=== PATIENT | female | born 1960 | race Caucasian/White ===

== ENCOUNTER 2017-12-16 22:19 | Inpatient (IN) | payer MEDICAID, OTHER ==
[~2017-12-16] VITALS: Ht 182.9 cm; Wt 155.6 kg
[2017-12-16 22:26] VITALS: BP_SYST 148
[2017-12-16] MEDS ORDERED: CARB200T PO (22:42)
[2017-12-16] MEDS ORDERED: ASA81 PO (22:42)
[2017-12-16] MEDS ORDERED: VITD2000 PO (22:42)
[2017-12-16] MEDS ORDERED: LISI40TA4 PO (22:42)
[2017-12-16] MEDS ORDERED: GLIP10TA11 PO (22:42)
[2017-12-16] MEDS ORDERED: CILO100T PO (22:42)
[2017-12-16] MEDS ORDERED: GLU500 PO (22:42)
[2017-12-16] MEDS ORDERED: LOVA20TA2 PO (22:42)
[2017-12-16] MEDS ORDERED: DEXTROSE 50% JECT 50 ML DISP.SYRIN IVP ONE (23:15)
[2017-12-16] MEDS ORDERED: LORazepam 2 MG/ML VIAL (FOR ER USE) IVP ONE (23:15)
[2017-12-16 23:22] LABS: BASOPHILS # (AUTO) 0.1 K/uL (0.0-0.2); EOSINOPHILS # (AUTO) 0.3 K/uL (0.0-0.4); EOSINOPHILS % (AUTO) 3.2 % (0.0-4.0); HEMATOCRIT 34.6 % (36-48); HEMOGLOBIN 11.8 g/dL (12.0-16.0); LYMPHOCYTES # (AUTO) 1.8 K/uL (1.0-5.5); MEAN CORPUSCULAR HEMOGLOBIN 33 pg (27-31); MEAN CORPUSCULAR HGB CONC 34 % (32-36); MEAN CORPUSCULAR VOLUME 96 fL (79.0-98.0); MONOCYTES % (AUTO) 12.7 % (1.7-9.3); NEUTROPHILS # (AUTO) 4.7 K/uL (1.8-7.7); NEUTROPHILS % (AUTO) 60.1 % (40.0-70.0); PLATELET COUNT (AUTO) 154 K/uL (130-430); RED BLOOD CELL COUNT(AUTO) 3.61 MIL/uL (4.2-6.2); RED CELL DISTRIBUTION WIDTH 13.6 % (9.0-15.0); WHITE BLOOD COUNT (AUTO) 7.9 K/uL (4.8-10.8)
[2017-12-16 23:34] LABS: CALCIUM 8.2 mg/dL (8.4-11.0); CREATININE 1.4 mg/dL (0.55-1.30); POTASSIUM 5.4 mmol/L (3.5-5.1)
[2017-12-16 23:38] LABS: ALBUMIN 1.8 g/dL (3.4-4.8); TOTAL BILIRUBIN 1.2 mg/dL (0.0-1.0)
[2017-12-16] MEDS ORDERED: SODIUM POLYSTYRENE SULFONATE 15 GM/60 ML UDBTL PO ONE (23:45)
[2017-12-16] MEDS ORDERED: INSULIN REGULAR, HUMAN 10 UNITS/0.1 ML INJ IVP ONE (23:45)
[2017-12-16] MEDS ORDERED: ALBUTEROL SULFATE 0.083% 2.5 MG/3 ML VIAL.NEB INH ONE (23:45)
[2017-12-16] MEDS ORDERED: NACL 0.9% 1,000 ML IV ONE (23:45)
[2017-12-17 00:18] LABS: FREE T4 (FREE THYROXINE) 1.3 ng/dl (0.8-1.5); THYROID STIMULATING HORMONE 2.04 uIu/mL (0.36-3.74)
[2017-12-17 01:42] VITALS: BP_SYST 122
[2017-12-17 02:10] VITALS: BP_SYST 116
[2017-12-17 04:47] LABS: BILIRUBIN,URINE 1+ (NEGATIVE); BLOOD, URINE 1+ (NEGATIVE); CLARITY/URINE CLEAR (CLEAR); COLOR,URINE YELLOW (YELLOW); GLUCOSE,URINE TRACE (NEGATIVE); KETONES,URINE NEGATIVE (NEGATIVE); LEUKOCYTE ESTERASE ,URINE NEGATIVE (NEGATIVE); NITRITE, URINE NEGATIVE (NEGATIVE); PROTEIN URINE TRACE (NEGATIVE)
[2017-12-17 04:49] LABS: BACTERIA,URINE FEW /HPF (None Seen); MUCUS,URINE None Seen /LPF (None Seen); RBC,URINE 0-3 /HPF (0-3); WBC,URINE 0-3 /HPF (0-3)
[2017-12-17] MEDS: INSULIN REGULAR, HUMAN 100 UNITS/ML, 10 ML VIAL (novoLIN R) SUBCUT PRN ×2 (06:08→11:18)
[2017-12-17 08:06] VITALS: BP_SYST 108
[2017-12-17 11:28] VITALS: BP_SYST 122
[2017-12-17 15:24] VITALS: BP_SYST 121
[2017-12-17 17:22] LABS: BASOPHILS # (AUTO) 0.1 K/uL (0.0-0.2); EOSINOPHILS # (AUTO) 0.3 K/uL (0.0-0.4)
[2017-12-17 17:24] LABS: BASOPHILS % (AUTO) 0.8 % (0.0-2.0); EOSINOPHILS % (AUTO) 2.6 % (0.0-4.0); HEMATOCRIT 32.2 % (36-48); LYMPHOCYTES # (AUTO) 2.4 K/uL (1.0-5.5); LYMPHOCYTES % (AUTO) 23.3 % (20.5-51.5); MEAN CORPUSCULAR HEMOGLOBIN 33 pg (27-31); MEAN CORPUSCULAR HGB CONC 34 % (32-36); MEAN CORPUSCULAR VOLUME 96 fL (79.0-98.0); MONOCYTES # (AUTO) 1.3 K/uL (0.0-1.0); MONOCYTES % (AUTO) 12.8 % (1.7-9.3); NEUTROPHILS # (AUTO) 6.3 K/uL (1.8-7.7); NEUTROPHILS % (AUTO) 60.5 % (40.0-70.0); PLATELET COUNT (AUTO) 151 K/uL (130-430); RED BLOOD CELL COUNT(AUTO) 3.36 MIL/uL (4.2-6.2); RED CELL DISTRIBUTION WIDTH 13.7 % (9.0-15.0); WHITE BLOOD COUNT (AUTO) 10.4 K/uL (4.8-10.8)
[2017-12-17 17:31] LABS: CALCIUM 8.1 mg/dL (8.4-11.0); CREATININE 1.36 mg/dL (0.55-1.30); POTASSIUM 4.7 mmol/L (3.5-5.1)
[2017-12-17 17:32] LABS: INR 1.3 (0.8-1.2); PROTHROMBIN TIME 13.3 SECS (9.5-12.5)
[2017-12-17] MEDS ORDERED: DEXTROSE 50% JECT 50 ML DISP.SYRIN IVP PRN (18:15)
[2017-12-17] MEDS ORDERED: INSULIN REGULAR, HUMAN 100 UNITS/ML, 10 ML VIAL (novoLIN R) SUBCUT PRN (18:15)
[2017-12-17] MEDS: FUROSEMIDE 100 MG in D5W 90 ML IV SCH (18:18)
[2017-12-17 20:00] VITALS: BP_SYST 147
[2017-12-17] MEDS: CILOSTAZOL 50 MG TABLET (PLETAL) PO SCH (21:35)
[2017-12-17] MEDS: SPIRONOLACTONE 50 MG TABLET (ALDACTONE) PO SCH (21:36)
[2017-12-18 01:23] VITALS: BP_SYST 118
[2017-12-18 06:48] LABS: BASOPHILS # (AUTO) 0.1 K/uL (0.0-0.2); BASOPHILS % (AUTO) 1.4 % (0.0-2.0); EOSINOPHILS # (AUTO) 0.3 K/uL (0.0-0.4); EOSINOPHILS % (AUTO) 2.8 % (0.0-4.0); HEMATOCRIT 29.9 % (36-48); HEMOGLOBIN 10.4 g/dL (12.0-16.0); LYMPHOCYTES # (AUTO) 2.5 K/uL (1.0-5.5); LYMPHOCYTES % (AUTO) 25.7 % (20.5-51.5); MEAN CORPUSCULAR HEMOGLOBIN 33 pg (27-31); MEAN CORPUSCULAR HGB CONC 35 % (32-36); MEAN CORPUSCULAR VOLUME 95 fL (79.0-98.0); MONOCYTES # (AUTO) 1.1 K/uL (0.0-1.0); MONOCYTES % (AUTO) 11.5 % (1.7-9.3); NEUTROPHILS # (AUTO) 5.6 K/uL (1.8-7.7); NEUTROPHILS % (AUTO) 58.6 % (40.0-70.0); PLATELET COUNT (AUTO) 140 K/uL (130-430); RED BLOOD CELL COUNT(AUTO) 3.14 MIL/uL (4.2-6.2); RED CELL DISTRIBUTION WIDTH 13.3 % (9.0-15.0); WHITE BLOOD COUNT (AUTO) 9.6 K/uL (4.8-10.8)
[2017-12-18 07:18] LABS: ALBUMIN 1.4 g/dL (3.4-4.8); CALCIUM 8.1 mg/dL (8.4-11.0); CREATININE 1.26 mg/dL (0.55-1.30); POTASSIUM 4.7 mmol/L (3.5-5.1); TOTAL BILIRUBIN 1.8 mg/dL (0.0-1.0)
[2017-12-18 07:26] LABS: TOTAL IRON BIND. CAPACITY 131 ug/dL (250-450)
[2017-12-18 07:37] VITALS: BP_SYST 109
[2017-12-18] MEDS ORDERED: LISINOPRIL 20 MG TABLET PO SCH (09:00)
[2017-12-18 11:29] VITALS: BP_SYST 100
[2017-12-18] MEDS: CILOSTAZOL 50 MG TABLET (PLETAL) PO SCH ×2 (12:50→22:36)
[2017-12-18] MEDS: CHOLECALCIFEROL (VITAMIN D3) 2,000 UNIT TABLET PO SCH (12:50)
[2017-12-18] MEDS: SPIRONOLACTONE 50 MG TABLET (ALDACTONE) PO SCH ×2 (12:51→22:36)
[2017-12-18] MEDS: FUROSEMIDE 100 MG in D5W 90 ML IV SCH (12:51)
[2017-12-18] MEDS: ASPIRIN 81 MG TAB.CHEW PO SCH (12:51)
[2017-12-18 14:22] LABS: BODY FLUID SOURCE/ TYPE PARACENTESIS; SOURCE/TYPE ,BODY FLUID PARACENTESIS
[2017-12-18 14:23] LABS: APPEARANCE,SPUN,BODY FLUID CLEAR (CLEAR); BF APPEARANCE UNSPUN HAZY (CLEAR); BODY FLUID COLOR YELLOW (LT YELLOW); BODY FLUID TOTAL VOLUME 3 mL; NEUTROPHIL, BODY FLUID 11 %; RBC, BODY FLUID 49.4 /uL; WBC, BODY FLUID 50 /uL
[2017-12-18 14:24] LABS: EOSINOPHIL, BODY FLUID 2 %; LYMPHOCYTES, BODY FLUID 72 %; MONOCYTES,BODY FLUID 15 %
[2017-12-18 15:43] VITALS: BP_SYST 132
[2017-12-18 20:50] VITALS: BP_SYST 101
[2017-12-18 23:37] LABS: BODY FLUID GLUCOSE 88 mg/dL
[2017-12-18 23:38] LABS: BODY FLUID TOTAL PROTEIN 0.7 g/dL
[2017-12-19] VITALS: BP_SYST 122
[2017-12-19 07:05] LABS: BASOPHILS # (AUTO) 0.1 K/uL (0.0-0.2); BASOPHILS % (AUTO) 0.8 % (0.0-2.0); EOSINOPHILS # (AUTO) 0.3 K/uL (0.0-0.4); HEMATOCRIT 29.4 % (36-48); HEMOGLOBIN 10.2 g/dL (12.0-16.0); LYMPHOCYTES # (AUTO) 2.8 K/uL (1.0-5.5); LYMPHOCYTES % (AUTO) 26.9 % (20.5-51.5); MEAN CORPUSCULAR HEMOGLOBIN 33 pg (27-31); MEAN CORPUSCULAR HGB CONC 35 % (32-36); MEAN CORPUSCULAR VOLUME 95 fL (79.0-98.0); MONOCYTES # (AUTO) 1.2 K/uL (0.0-1.0); MONOCYTES % (AUTO) 11.7 % (1.7-9.3); NEUTROPHILS # (AUTO) 6.2 K/uL (1.8-7.7); NEUTROPHILS % (AUTO) 57.6 % (40.0-70.0); PLATELET COUNT (AUTO) 129 K/uL (130-430); RED CELL DISTRIBUTION WIDTH 13.2 % (9.0-15.0); WHITE BLOOD COUNT (AUTO) 10.6 K/uL (4.8-10.8)
[2017-12-19 07:06] LABS: HEPATITIS A AB, IgM Negative (Negative); HEPATITIS B CORE AB, IgM Negative (Negative); HEPATITIS B SURFACE AG Negative (Negative)
[2017-12-19 07:13] LABS: INR 1.4 (0.8-1.2); PROTHROMBIN TIME 14.5 SECS (9.5-12.5)
[2017-12-19 07:15] LABS: CREATININE 1.16 mg/dL (0.55-1.30); POTASSIUM 4.5 mmol/L (3.5-5.1)
[2017-12-19 07:23] LABS: ALBUMIN 1.5 g/dL (3.4-4.8); TOTAL BILIRUBIN 1.6 mg/dL (0.0-1.0)
[2017-12-19 08:14] LABS: AFP, TUMOR MARKER 2.5 ng/mL (0.0-8.3)
[2017-12-19 08:31] VITALS: BP_SYST 106
[2017-12-19] MEDS: CHOLECALCIFEROL (VITAMIN D3) 2,000 UNIT TABLET PO SCH (09:18)
[2017-12-19] MEDS ORDERED: LIDOCAINE 1%, 20 ML MDV 20 ML ONE (09:43)
[2017-12-19] MEDS: FUROSEMIDE 100 MG in D5W 90 ML IV SCH (12:07)
[2017-12-19] MEDS: ASPIRIN 81 MG TAB.CHEW PO SCH (12:07)
[2017-12-19] MEDS: SPIRONOLACTONE 50 MG TABLET (ALDACTONE) PO SCH ×2 (12:08→20:47)
[2017-12-19] MEDS: CILOSTAZOL 50 MG TABLET (PLETAL) PO SCH ×2 (12:08→20:48)
[2017-12-19 12:16] VITALS: BP_SYST 107
[2017-12-19 14:57] LABS: BF APPEARANCE UNSPUN SLIGHTLY HAZY (CLEAR); BODY FLUID COLOR LT YELLOW (LT YELLOW); BODY FLUID SOURCE/ TYPE PARACENTESIS; BODY FLUID TOTAL VOLUME 5800 mL; SOURCE/TYPE ,BODY FLUID ASCITES
[2017-12-19 16:30] LABS: LYMPHOCYTES, BODY FLUID 18 %; NEUTROPHIL, BODY FLUID 13 %
[2017-12-19 16:37] VITALS: BP_SYST 125
[2017-12-19 17:08] LABS: EOSINOPHIL, BODY FLUID 0 %; MONOCYTES,BODY FLUID 69 %
[2017-12-19 17:09] LABS: BODY FLUID OTHER CELLS secomm %
[2017-12-19 17:11] LABS: WBC, BODY FLUID 88 /uL
[2017-12-19 17:12] LABS: RBC, BODY FLUID 61 /uL
[2017-12-19 17:32] LABS: APPEARANCE,SPUN,BODY FLUID CLEAR (CLEAR)
[2017-12-20 00:24] VITALS: BP_SYST 110
[2017-12-20 02:15] LABS: BODY FLUID GLUCOSE 123 mg/dL; BODY FLUID TOTAL PROTEIN 0.8 g/dL
[2017-12-20] MEDS: FUROSEMIDE 100 MG in D5W 90 ML IV SCH (05:17)
[2017-12-20 07:33] LABS: BASOPHILS % (AUTO) 0.2 % (0.0-2.0); EOSINOPHILS # (AUTO) 0.1 K/uL (0.0-0.4); EOSINOPHILS % (AUTO) 1.3 % (0.0-4.0); HEMATOCRIT 28.7 % (36-48); HEMOGLOBIN 9.8 g/dL (12.0-16.0); LYMPHOCYTES # (AUTO) 1.5 K/uL (1.0-5.5); LYMPHOCYTES % (AUTO) 13.6 % (20.5-51.5); MEAN CORPUSCULAR HEMOGLOBIN 32 pg (27-31); MEAN CORPUSCULAR HGB CONC 34 % (32-36); MEAN CORPUSCULAR VOLUME 95 fL (79.0-98.0); MONOCYTES # (AUTO) 1.4 K/uL (0.0-1.0); MONOCYTES % (AUTO) 12.9 % (1.7-9.3); NEUTROPHILS # (AUTO) 7.9 K/uL (1.8-7.7); PLATELET COUNT (AUTO) 124 K/uL (130-430); RED BLOOD CELL COUNT(AUTO) 3.02 MIL/uL (4.2-6.2); RED CELL DISTRIBUTION WIDTH 13.5 % (9.0-15.0); WHITE BLOOD COUNT (AUTO) 10.9 K/uL (4.8-10.8)
[2017-12-20 07:41] LABS: ALBUMIN 1.4 g/dL (3.4-4.8); CALCIUM 7.7 mg/dL (8.4-11.0); CREATININE 1.21 mg/dL (0.55-1.30); POTASSIUM 4.1 mmol/L (3.5-5.1); TOTAL BILIRUBIN 1.6 mg/dL (0.0-1.0)
[2017-12-20 07:48] VITALS: BP_SYST 121
[2017-12-20] MEDS: CILOSTAZOL 50 MG TABLET (PLETAL) PO SCH ×2 (09:22→21:21)
[2017-12-20] MEDS: ASPIRIN 81 MG TAB.CHEW PO SCH (09:22)
[2017-12-20] MEDS: SPIRONOLACTONE 50 MG TABLET (ALDACTONE) PO SCH ×2 (09:23→21:22)
[2017-12-20] MEDS: CHOLECALCIFEROL (VITAMIN D3) 2,000 UNIT TABLET PO SCH (09:23)
[2017-12-20 12:46] VITALS: BP_SYST 108
[2017-12-20 16:52] VITALS: BP_SYST 117
[2017-12-20 20:10] VITALS: BP_SYST 113
[2017-12-20] MEDS: FUROSEMIDE 20 MG/2 ML VIAL IVP SCH (21:23)
[2017-12-20 23:26] VITALS: BP_SYST 100
[2017-12-21 07:10] LABS: BASOPHILS # (AUTO) 0.1 K/uL (0.0-0.2); BASOPHILS % (AUTO) 0.5 % (0.0-2.0); EOSINOPHILS # (AUTO) 0.4 K/uL (0.0-0.4); EOSINOPHILS % (AUTO) 2.8 % (0.0-4.0); HEMATOCRIT 30.5 % (36-48); HEMOGLOBIN 10.5 g/dL (12.0-16.0); LYMPHOCYTES # (AUTO) 2.3 K/uL (1.0-5.5); LYMPHOCYTES % (AUTO) 17.3 % (20.5-51.5); MEAN CORPUSCULAR HEMOGLOBIN 33 pg (27-31); MEAN CORPUSCULAR HGB CONC 34 % (32-36); MEAN CORPUSCULAR VOLUME 96 fL (79.0-98.0); MONOCYTES # (AUTO) 1.9 K/uL (0.0-1.0); NEUTROPHILS # (AUTO) 8.7 K/uL (1.8-7.7); PLATELET COUNT (AUTO) 117 K/uL (130-430); RED BLOOD CELL COUNT(AUTO) 3.18 MIL/uL (4.2-6.2); RED CELL DISTRIBUTION WIDTH 13.4 % (9.0-15.0); WHITE BLOOD COUNT (AUTO) 13.4 K/uL (4.8-10.8)
[2017-12-21 07:21] LABS: ALBUMIN 1.4 g/dL (3.4-4.8); CALCIUM 7.8 mg/dL (8.4-11.0); CREATININE 1.05 mg/dL (0.55-1.30); POTASSIUM 4.1 mmol/L (3.5-5.1); TOTAL BILIRUBIN 1.7 mg/dL (0.0-1.0)
[2017-12-21 08:10] VITALS: BP_SYST 127
[2017-12-21] MEDS: CHOLECALCIFEROL (VITAMIN D3) 2,000 UNIT TABLET PO SCH (08:26)
[2017-12-21] MEDS: SPIRONOLACTONE 50 MG TABLET (ALDACTONE) PO SCH (08:27)
[2017-12-21] MEDS: CILOSTAZOL 50 MG TABLET (PLETAL) PO SCH (08:27)
[2017-12-21] MEDS: FUROSEMIDE 20 MG/2 ML VIAL IVP SCH (08:28)
[2017-12-21 09:15] LABS: NEUTROPHILS % (AUTO) 65.4 % (40.0-70.0)
[2017-12-21 11:19] VITALS: BP_SYST 127
[2017-12-21 11:59] LABS: ALPHA-1-ANTITRYPSIN, S 76 mg/dL (90-200)
[2017-12-21 12:35] VITALS: BP_SYST 127
[2017-12-21 13:08] LABS: ANTI-SMOOTH MUSCLE AB 18 Units (0-19)
[2017-12-21] MEDS ORDERED: FUROSEMIDE 40 MG TABLET PO SCH (15:00)
[2017-12-21 16:50] VITALS: BP_SYST 116
[2017-12-21 20:13] VITALS: BP_SYST 123
== END 2017-12-21 20:43 ==
LOC: SED 22:19 → STU 12-17 01:01 → SMU 12-21 15:27
PROVIDERS: ADMIT Internal Medicine; ATTEND Internal Medicine
PROC: 0W9G3ZZ Drainage of Peritoneal Cavity, Percutaneous Approach (ICD-10-PCS; principal; 2017-12-18)
PROC: 0W9G3ZZ Drainage of Peritoneal Cavity, Percutaneous Approach (ICD-10-PCS; 2017-12-19)
DX: K74.60 Unspecified cirrhosis of liver (principal); N17.0 Acute kidney failure with tubular necrosis; E43 Unspecified severe protein-calorie malnutrition; Z68.42 Body mass index [BMI] 45.0-49.9, adult; R18.8 Other ascites; E87.5 Hyperkalemia; E66.01 Morbid (severe) obesity due to excess calories; M25.561 Pain in right knee; E78.5 Hyperlipidemia, unspecified; I10 Essential (primary) hypertension; D63.8 Anemia in other chronic diseases classified elsewhere; K80.20 Calculus of gallbladder without cholecystitis without obstruction; E11.9 Type 2 diabetes mellitus without complications; W18.30XA Fall on same level, unspecified, initial encounter; Y93.89 Activity, other specified; Y92.89 Other specified places as the place of occurrence of the external cause; Y99.8 Other external cause status; Z79.899 Other long term (current) drug therapy; Z79.82 Long term (current) use of aspirin; Z72.0 Tobacco use
CPT/HCPCS: 36415; 49083; 73560-TC; 73700-TC; 80048; 80053; 80061; 80074; 81000-TC; 82042; 82103; 82105; 82947-TC; 82962; 82977-TC; 83516; 83540-TC; 83550-TC; 83615-TC; 83690-TC; 84157-TC; 84439; 84443-TC; 85025; 85610-TC; 86038; 87070-TC; 89051-TC; 89060-TC; 93005; 93306; 94640; 96361; 96374; 97110-GP; 97116-GP; 97530-GP; 99285; C1729; J1815; J1940; J2001; J7030; J7060

== ENCOUNTER 2017-12-26 19:45 | Inpatient (IN) | payer MEDICAID ==
[~2017-12-26] VITALS: Ht 175.3 cm; Wt 166.9 kg
[2017-12-26 19:45] VITALS: BP_SYST 85
[~2017-12-26 19:45] MED LIST: ASA81 PO; CARB200T PO; CILO100T PO; GLIP10TA11 PO; LISI40TA4 PO; VITD2000 PO
[2017-12-26] MEDS ORDERED: NS 1000 ML BAG IV ONE (20:15)
[2017-12-26] MEDS ORDERED: NOREPINEPHRINE 4 MG/4 ML VIAL IV ONE (20:15)
[2017-12-26 20:36] LABS: ALBUMIN 1.1 g/dL (3.4-4.8); CALCIUM 7.4 mg/dL (8.4-11.0); HEMATOCRIT 29.3 % (36-48); HEMOGLOBIN 10.4 g/dL (12.0-16.0); MEAN CORPUSCULAR HEMOGLOBIN 35 pg (27-31); MEAN CORPUSCULAR HGB CONC 36 % (32-36); MEAN CORPUSCULAR VOLUME 97 fL (79.0-98.0); PLATELET COUNT (AUTO) 146 K/uL (130-430); RED BLOOD CELL COUNT(AUTO) 3.03 MIL/uL (4.2-6.2); RED CELL DISTRIBUTION WIDTH 13.8 % (9.0-15.0); TOTAL BILIRUBIN 2.5 mg/dL (0.0-1.0); WHITE BLOOD COUNT (AUTO) 26.5 K/uL (4.8-10.8)
[2017-12-26 21:00] LABS: POTASSIUM 5.4 mmol/L (3.5-5.1)
[2017-12-26] MEDS ORDERED: NACL 0.9% 400 ML IV ONE (21:00)
[2017-12-26] MEDS ORDERED: PIPERACILLIN/TAZO 3.375 GM in NS 50 ML IV ONE (21:00)
[2017-12-26 21:02] LABS: INR 1.8 (0.8-1.2); PROTHROMBIN TIME 18.7 SECS (9.5-12.5)
[2017-12-26 21:06] LABS: CREATININE 3.02 mg/dL (0.55-1.30)
[2017-12-26] MEDS ORDERED: PIPERACILLIN/TAZOBACTAM 3.375 GM/VIAL (ZOSYN) IV ONE (21:13)
[2017-12-26 21:22] LABS: BAND % (MANUAL) 15 % (0-6); BASOPHILS % (MANUAL) 0 % (0-2); EOSINOPHILS % (MANUAL) 0 % (0-7); LYMPHOCYTES % (MANUAL) 4 % (20-46); MONOCYTES % (MANUAL) 10 % (0-11)
[2017-12-26] MEDS ORDERED: SPIR50TA26 PO (21:44)
[2017-12-26] MEDS ORDERED: LACT10SO66 PO (21:44)
[2017-12-26] MEDS ORDERED: TRAM50TA92 PO (21:44)
[2017-12-26] MEDS ORDERED: FURO-149 PO (21:44)
[2017-12-26] MEDS ORDERED: NOREPINEPHRINE BITARTRATE 4 MG in NS 246 ML IV ONE (22:00)
[2017-12-26] MEDS ORDERED: ALBUMIN HUMAN 25% 100 ML IV ONE (23:00)
[2017-12-26 23:53] LABS: BILIRUBIN,URINE 2+ (NEGATIVE); BLOOD, URINE 3+ (NEGATIVE); CLARITY/URINE HAZY (CLEAR); COLOR,URINE AMBER (YELLOW); GLUCOSE,URINE NEGATIVE (NEGATIVE); KETONES,URINE TRACE (NEGATIVE); LEUKOCYTE ESTERASE ,URINE 2+ (NEGATIVE); NITRITE, URINE POSITIVE (NEGATIVE); PROTEIN URINE 2+ (NEGATIVE); UROBILINOGEN,URINE >=8 (0.2-1.0)
[2017-12-27] VITALS (11 sets, daily range): BP systolic 66–157
[2017-12-27 00:10] LABS: BACTERIA,URINE MANY /HPF (None Seen); MUCUS,URINE 2+ /LPF (None Seen); RBC,URINE 20-50 /HPF (0-3); URINE AMORPHOUS URATE 1+ /HPF (None Seen); WBC,URINE 20-50 /HPF (0-3)
[2017-12-27] MEDS ORDERED: D5W 1,000 ML IV SCH (00:18)
[2017-12-27] MEDS ORDERED: NACL 0.9% 1,000 ML IV SCH (00:18)
[2017-12-27] MEDS ORDERED: ACETAMINOPHEN 650 MG/20.3 ML UDC PO PRN (00:30)
[2017-12-27] MEDS ORDERED: metroNIDAZOLE 500 mg/NS 100 ML IV ONE ×2 (01:00→06:01)
[2017-12-27] MEDS ORDERED: INSULIN ASPART 100 UNITS/ML, 10 ML VIAL (NovoLOG) SUBCUT PRN (01:00)
[2017-12-27] MEDS ORDERED: PANTOPRAZOLE SODIUM 40 MG/VIAL (PROTONIX) IVP ONE (01:00)
[2017-12-27] MEDS ORDERED: ALBUTEROL SULFATE 0.083% 2.5 MG/3 ML VIAL.NEB INH SCH (03:00)
[2017-12-27] MEDS ORDERED: SODIUM BICARBONATE 8.4% JECT 100 MEQ in D5W 1,000 ML IV SCH (05:15)
[2017-12-27] MEDS ORDERED: SODIUM BICARBONATE 8.4% JECT 50 MEQ/50 ML SYRINGE ONE (05:20)
[2017-12-27] MEDS ORDERED: metroNIDAZOLE 500 mg/NS 100 ML IV SCH (06:00)
[2017-12-27] MEDS ORDERED: HYDROCORTISONE SOD SUCC 100 MG/2 ML VIAL IVP SCH (06:00)
[2017-12-27] MEDS ORDERED: PIPERACILLIN/TAZO 2.25G/DEX-IS 50 ML IV SCH (06:00)
[2017-12-27] MEDS ORDERED: PIPERACILLIN/TAZOBACTAM 2.25 GM VIAL IV ONE (06:02)
[2017-12-27] MEDS ORDERED: LACTULOSE 20 GM/30 ML UDC NG ONE (06:30)
[2017-12-27] MEDS ORDERED: NOREPINEPHRINE BITARTRATE 4 MG in D5W 246 ML IV PRN (06:30)
[2017-12-27] MEDS ORDERED: lamiVUDine 150 MG TABLET PO ONE (07:04)
[2017-12-27] MEDS ORDERED: NOREPINEPHRINE 4 MG/4 ML VIAL IV ONE (07:06)
[2017-12-27] MEDS ORDERED: EPINEPHrine JECT 1 MG/10 ML SYR IVP ONE ×2 (07:08→09:55)
[2017-12-27] MEDS ORDERED: PANTOPRAZOLE SODIUM 40 MG/VIAL (PROTONIX) IVP SCH (09:00)
[2017-12-27] MEDS ORDERED: SODIUM BICARBONATE 8.4% JECT 50 MEQ/50 ML SYRINGE IVP ONE (09:55)
[2017-12-27] MEDS ORDERED: LACTULOSE 20 GM/30 ML UDC PO SCH (14:00)
== END 2017-12-27 07:43 | disposition expired | DRG 720 ==
LOC: SED 19:45 → SIC 22:32 → UNDOADMIN 22:32 → SIC 22:37
PROVIDERS: ADMIT Internal Medicine; ATTEND Internal Medicine
PROC: 5A12012 Performance of Cardiac Output, Single, Manual (ICD-10-PCS; principal; 2017-12-27)
PROC: 5A1935Z Respiratory Ventilation, Less than 24 Consecutive Hours (ICD-10-PCS; 2017-12-27)
PROC: 0BH17EZ Insertion of Endotracheal Airway into Trachea, Via Natural or Artificial Opening (ICD-10-PCS; 2017-12-27)
DX: A41.9 Sepsis, unspecified organism (principal); I46.9 Cardiac arrest, cause unspecified; R65.21 Severe sepsis with septic shock; G93.40 Encephalopathy, unspecified; N17.9 Acute kidney failure, unspecified; D68.9 Coagulation defect, unspecified; E11.22 Type 2 diabetes mellitus with diabetic chronic kidney disease; E11.40 Type 2 diabetes mellitus with diabetic neuropathy, unspecified; E11.649 Type 2 diabetes mellitus with hypoglycemia without coma; E87.5 Hyperkalemia; E66.01 Morbid (severe) obesity due to excess calories; N39.0 Urinary tract infection, site not specified; E86.0 Dehydration; M19.90 Unspecified osteoarthritis, unspecified site; E78.00 Pure hypercholesterolemia, unspecified; K74.60 Unspecified cirrhosis of liver; I12.9 Hypertensive chronic kidney disease with stage 1 through stage 4 chronic kidney disease, or unspecified chronic kidney disease; N18.9 Chronic kidney disease, unspecified; K72.90 Hepatic failure, unspecified without coma; Z68.43 Body mass index [BMI] 50.0-59.9, adult; Z79.899 Other long term (current) drug therapy; Z79.82 Long term (current) use of aspirin
CPT/HCPCS: 36415; 36600; 70450-TC; 71045; 80053; 81000-TC; 82140-TC; 82803-TC; 82962; 83605; 84484; 85007; 85027; 85610-TC; 85730-TC; 87040-TC; 87081; 87086; 87186-TC; 92950; 93005; 94002; 94640; 96361; 96365; 96367; 99291; C9113; J0171; J1720; J2543; J3490; J7030; J7040; J7042; J7050; J7060; J7613; P9046